=== PATIENT | female | born 1960 | race Caucasian/White ===

== ENCOUNTER → 2017-01-03 | Outpatient (CLI) | payer BC ==
[~2017-01-03] MED LIST: ATORVASTATIN; BCP TD; CYCLAFEM PO; PRAVACHOL 20MG20 MG PO
== END ==
LOC: MC.RAD 13:33
DX: D24.2 Benign neoplasm of left breast (principal); D24.1 Benign neoplasm of right breast

== ENCOUNTER → 2018-01-13 | Outpatient (CLI) | payer BC | LOC: MC.RAD 13:10 | DX: Z12.31 Encounter for screening mammogram for malignant neoplasm of breast (principal) ==

== ENCOUNTER → 2019-02-12 | Outpatient (CLI) | payer BC | LOC: MC.RAD 02-06 07:45 | DX: Z12.31 Encounter for screening mammogram for malignant neoplasm of breast (principal) ==

== ENCOUNTER → 2020-03-07 | Outpatient (CLI) | payer BC | LOC: MC.RAD 02-15 13:00 | DX: Z12.31 Encounter for screening mammogram for malignant neoplasm of breast (principal) ==

== ENCOUNTER → 2021-03-09 | Outpatient (CLI) | payer BC | LOC: MC.RAD 11:27 | DX: Z12.31 Encounter for screening mammogram for malignant neoplasm of breast (principal) ==

== ENCOUNTER → 2022-03-10 | Outpatient (CLI) | payer BC | LOC: MC.RAD 11:14 | DX: Z12.31 Encounter for screening mammogram for malignant neoplasm of breast (principal) ==

== ENCOUNTER 2023-01-21 06:52 | Day surgery (SDC) | payer BC ==
[~2023-01-21] VITALS: Ht 174 cm; Wt 73.3 kg
[2023-01-21 07:13] VITALS: BP 103/69; PULSE 73; TEMP 97.5
[2023-01-21] MEDS ORDERED: ESTRACE 1MG1 MG/TAB PO (07:16)
[2023-01-21 08:37] VITALS: BP 97/83; PULSE 63; TEMP 98.5
[2023-01-21 08:50] VITALS: BP 109/75; PULSE 67
--- NOTE | 2023-01-21 14:42 | NUR ---
0862 - 0900: PT TO RECOVERY BAY 3 FROM [facility] S/P COLONOSCOPY PLACED ON MONITOR, VSS ON RA RECEIVED REPORT AND ASSUMED CARE OF PT FROM ENDO RN /RIDE HOME AT BEDSIDE DR HDZ TO SPEAK WITH FAMILY/PT, SHE HAS TOLERATED PO WELL PT HAS REMAINED A&O, NAD, VSS ON RA, TOLERATING PO, IS WITHOUT SIGNIFICANT COMPLAINT, WITH STEADY GAIT THRU OUT STAY IV D/C'D. D/C INSTRUCTIONS, ANY FOLLOW UP REVIEWED AND HANDED TO PT. ALL QUESTIONS AND CONCERNS ADDRESSED TO PT SATISFACTION. TAKEN TO EXIT VIA W/C WITH ALL BELONGINGS AND PAPERWORK IN HAND, ASSISTED INTO PASSENGER SEAT OF POV. SPOUSE TO DRIVE HOME.
== END 2023-01-21 09:00 | disposition home or self-care (01) ==
LOC: SDCO 06:52
DX: Z12.11 Encounter for screening for malignant neoplasm of colon (principal)
CPT/HCPCS: J2704; J7120

== ENCOUNTER → 2023-04-14 | Outpatient (CLI) | payer BC ==
[2005-05-28 08:20] VITALS: TEMP 98.1
[~2023-04-14] MED LIST changes: +ESTRACE 1MG1 MG/TAB PO
== END ==
LOC: MC.RAD 16:05
DX: Z12.31 Encounter for screening mammogram for malignant neoplasm of breast (principal)

== ENCOUNTER → 2024-04-16 | Outpatient (CLI) | payer BC ==
[2005-05-28 08:20] VITALS: TEMP 98.1
== END ==
LOC: MC.RAD 07:37
DX: Z12.31 Encounter for screening mammogram for malignant neoplasm of breast (principal)